=== PATIENT | male | born 1955 | race Caucasian/White ===

== ENCOUNTER 2025-01-23 06:36 | Day surgery (SDC) | payer OTHER, SELFPAY ==
[2025-01-23 07:32] LABS: Glucose - Point of Care 144 mg/dl (70-99)
== END 2025-01-23 09:36 | disposition home or self-care (01) ==
LOC: GI 06:36
PROVIDERS: ATTENDING PHYSICIAN Internal Medicine Gastroenterology
DX: Z12.11 Encounter for screening for malignant neoplasm of colon (principal); K64.8 Other hemorrhoids; K57.30 Diverticulosis of large intestine without perforation or abscess without bleeding; Z86.0100 Personal history of colon polyps, unspecified
CPT/HCPCS: G0105; 82962

== ENCOUNTER 2025-01-24 07:02 | Day surgery (SDC) | payer OTHER, SELFPAY ==
[2025-01-24 07:22] VITALS: BMI 34.6
[2025-01-24 07:25] VITALS: BP 150/85
[2025-01-24 07:38] LABS: Glucose - Point of Care 133 mg/dl (70-99)
[2025-01-24 09:22] VITALS: BP 127/76
[2025-01-24 09:30] VITALS: BP 116/77
[2025-01-24 09:45] VITALS: BP 132/79
[2025-01-24 09:47] VITALS: BP 135/92
== END 2025-01-24 09:55 | disposition home or self-care (01) ==
LOC: GI 07:02
PROVIDERS: ATTENDING PHYSICIAN Internal Medicine Gastroenterology
DX: Z12.11 Encounter for screening for malignant neoplasm of colon (principal); K64.8 Other hemorrhoids; K57.30 Diverticulosis of large intestine without perforation or abscess without bleeding; K63.89 Other specified diseases of intestine; D12.2 Benign neoplasm of ascending colon; D12.3 Benign neoplasm of transverse colon; Z86.0100 Personal history of colon polyps, unspecified
CPT/HCPCS: 45385; 45381; 82962; 88305